=== PATIENT | male | born 1965 | race Caucasian/White ===

== ENCOUNTER 2018-11-10 04:14 | Inpatient (IN) | payer BC, OTHER ==
[2018-11-10] MEDS: NITROGLYCERIN 2% 1 GM OINT PKT TD (04:29)
[2018-11-10] MEDS ORDERED: NITROGLYCERIN (SL) 0.4 MG TAB SL ×2 (04:30→05:30)
[2018-11-10 04:35] LABS: ADD MAN DIFF? NO
[2018-11-10 04:37] LABS: BASOPHIL # 0.1 10^3/ul (0.0-0.1); BASOPHILS % 0.5 % (0.0-2.0); EOSINOPHILS # 0.5 10^3/ul (0.0-0.5); EOSINOPHILS % 4.2 % (0.0-7.0); HEMATOCRIT 45.5 % (42.0-52.0); HEMOGLOBIN 15.2 g/dl (14.0-18.0); LYMPHOCYTES # 2.2 10^3/ul (0.8-2.9); LYMPHOCYTES % 19.2 % (15.0-51.0); MEAN CORPUSCULAR HEMOGLOBIN 30.5 pg (29.0-33.0); MEAN CORPUSCULAR HGB CONC 33.4 g/dl (32.0-37.0); MEAN CORPUSCULAR VOLUME 91.2 fl (82.0-101.0); MEAN PLATELET VOLUME 8.8 fl (7.4-10.4); MONOCYTE # 1.1 10^3/ul (0.3-0.9); MONOCYTES % 9.3 % (0.0-11.0); NEUTROPHIL # 7.5 10^3/ul (1.6-7.5); NEUTROPHILS % 66.1 % (39.0-77.0); PLATELET COUNT 254 10^3/UL (140-415); RED BLOOD COUNT 4.99 10^6/ul (4.70-6.10); RED CELL DISTRIBUTION WIDTH 12.4 % (11.5-14.5)
[2018-11-10 04:37] LABS: WHITE BLOOD COUNT 11.3 10^3/ul (4.8-10.8)
[2018-11-10 04:59] LABS: ANION GAP 10 (5-13); BLOOD UREA NITROGEN 18 mg/dl (7-20); CARBON DIOXIDE 27 mmol/L (21-31); CHLORIDE 107 mmol/L (97-110); CREATININE 0.88 mg/dl (0.61-1.24); Estimated GFR > 60 mL/min (>60); GLUCOSE 118 mg/dl (70-220); POTASSIUM 4.4 mmol/L (3.5-5.1); SODIUM 144 mmol/L (135-144)
[2018-11-10] MEDS ORDERED: NACL 0.9% 3 ML SYG IV (05:30)
[2018-11-10] MEDS ORDERED: ONDANSETRON 4 MG INJ IV (05:30)
[2018-11-10] MEDS ORDERED: ACETAMINOPHEN 325 MG TAB PO (05:30)
[2018-11-10] MEDS ORDERED: morphine 2 MG INJ IV (05:30)
[2018-11-10] MEDS ORDERED: DOCUSATE SODIUM 100 MG CAP PO (05:30)
[2018-11-10] MEDS ORDERED: BISACODYL (EC) 5 MG TAB PO (05:30)
[2018-11-10] MEDS: LISINOPRIL 5 MG TAB PO ×2 (05:30→09:00)
[2018-11-10 05:45] LABS: INR 0.95; PARTIAL THROMBOPLASTIN TIME 26.5 Sec (23.0-35.0); PROTIME 12.8 Sec (11.9-14.9)
[2018-11-10 06:09] LABS: MAGNESIUM 1.8 mg/dl (1.7-2.5)
[2018-11-10 06:20] LABS: CK-MB 1.15 ng/ml (0.0-2.4)
[2018-11-10 06:30] LABS: CHOLESTEROL 125 mg/dl (100-200)
[2018-11-10 06:30] LABS: HDL CHOLESTEROL 25 mg/dl (28-71); LDL CHOLESTEROL,CALCULATED 77 mg/dl; TRIGLYCERIDES 117 mg/dl (0-149)
[2018-11-10] MEDS: HEPARIN 1000 UNITS/ML 10 ML INJ IV ×2 (06:33→15:05)
[2018-11-10] MEDS: HEPARIN 25000 UNITS/250 ML 250 ML IV ×2 (06:40→22:44)
[2018-11-10] MEDS: SOD CHLORIDE 0.9% 1,000 ML IV (09:00)
[2018-11-10] MEDS ORDERED: ASPIRIN (EC) 81 MG TAB PO (09:00)
[2018-11-10] MEDS: ATORVASTATIN 80 MG TAB PO ×2 (09:46→21:52)
[2018-11-10] MEDS: ASPIRIN 81 MG TAB PO (09:46)
[2018-11-10] MEDS: CLOPIDOGREL 75 MG TAB PO (09:46)
[2018-11-10 10:27] LABS: CREATINE KINASE 84 IU/L (23-200)
[2018-11-10 10:40] LABS: CK INDEX 1.1
[2018-11-10 10:43] LABS: TROPONIN-I 0.964 ng/ml (0.000-0.120)
[2018-11-10 14:36] LABS: CREATINE KINASE 84 IU/L (23-200)
[2018-11-10 14:40] LABS: PARTIAL THROMBOPLASTIN TIME 28.1 Sec (23.0-35.0)
[2018-11-10 14:49] LABS: CK INDEX 1.4; CK-MB 1.17 ng/ml (0.0-2.4)
[2018-11-10 14:51] LABS: TROPONIN-I 0.796 ng/ml (0.000-0.120)
[2018-11-10 21:29] LABS: PARTIAL THROMBOPLASTIN TIME 50.4 Sec (23.0-35.0)
[2018-11-11] MEDS: SOD CHLORIDE 0.9% 1,000 ML IV (01:55)
[2018-11-11] MEDS: HEPARIN 25000 UNITS/250 ML 250 ML IV ×2 (03:15→16:39)
[2018-11-11 06:33] LABS: ADD MAN DIFF? NO
[2018-11-11 06:44] LABS: BASOPHIL # 0.1 10^3/ul (0.0-0.1); BASOPHILS % 0.6 % (0.0-2.0); EOSINOPHILS # 0.5 10^3/ul (0.0-0.5); EOSINOPHILS % 4.5 % (0.0-7.0); HEMATOCRIT 47.5 % (42.0-52.0); HEMOGLOBIN 15.9 g/dl (14.0-18.0); LYMPHOCYTES % 19.2 % (15.0-51.0); MEAN CORPUSCULAR HEMOGLOBIN 30.6 pg (29.0-33.0); MEAN CORPUSCULAR HGB CONC 33.5 g/dl (32.0-37.0); MEAN CORPUSCULAR VOLUME 91.5 fl (82.0-101.0); MEAN PLATELET VOLUME 9.4 fl (7.4-10.4); MONOCYTE # 0.8 10^3/ul (0.3-0.9); MONOCYTES % 7.9 % (0.0-11.0); NEUTROPHIL # 7.1 10^3/ul (1.6-7.5); NEUTROPHILS % 66.9 % (39.0-77.0); PLATELET COUNT 226 10^3/UL (140-415); RED BLOOD COUNT 5.19 10^6/ul (4.70-6.10); RED CELL DISTRIBUTION WIDTH 12.1 % (11.5-14.5)
[2018-11-11 06:44] LABS: WHITE BLOOD COUNT 10.6 10^3/ul (4.8-10.8)
[2018-11-11 06:57] LABS: PARTIAL THROMBOPLASTIN TIME 64.9 Sec (23.0-35.0)
[2018-11-11 07:11] LABS: CREATINE KINASE 76 IU/L (23-200)
[2018-11-11 07:16] LABS: ALANINE AMINOTRANSFERASE 70 IU/L (13-69); ALBUMIN 4.1 g/dl (3.3-4.9); ALBUMIN/GLOBULIN RATIO 1.64; ALKALINE PHOSPHATASE 62 IU/L (42-121); ANION GAP 10 (5-13); ASPARTATE AMINO TRANSFERASE 45 IU/L (15-46); BILIRUBIN,INDIRECT 0.7 mg/dl (0-1.1); BILIRUBIN,TOTAL 0.7 mg/dl (0.2-1.3); BLOOD UREA NITROGEN 17 mg/dl (7-20); CALCIUM 9.3 mg/dl (8.4-10.2); CARBON DIOXIDE 24 mmol/L (21-31); CHLORIDE 107 mmol/L (97-110); CREATININE 0.81 mg/dl (0.61-1.24); Estimated GFR > 60 mL/min (>60); GLUCOSE 91 mg/dl (70-220); POTASSIUM 4.9 mmol/L (3.5-5.1); SODIUM 141 mmol/L (135-144); TOTAL PROTEIN 6.6 g/dl (6.1-8.1)
[2018-11-11 07:19] LABS: CK INDEX 0.7; CK-MB 0.54 ng/ml (0.0-2.4)
[2018-11-11 07:22] LABS: TROPONIN-I 0.914 ng/ml (0.000-0.120)
[2018-11-11] MEDS: LISINOPRIL 5 MG TAB PO (08:20)
[2018-11-11] MEDS: ASPIRIN 81 MG TAB PO (08:21)
[2018-11-11] MEDS: CLOPIDOGREL 75 MG TAB PO (08:21)
[2018-11-11 13:55] LABS: PARTIAL THROMBOPLASTIN TIME 65.3 Sec (23.0-35.0)
[2018-11-11 20:28] LABS: PARTIAL THROMBOPLASTIN TIME 65.5 Sec (23.0-35.0)
[2018-11-11] MEDS: ATORVASTATIN 80 MG TAB PO (20:54)
[2018-11-12] MEDS: HEPARIN 25000 UNITS/250 ML 250 ML IV (06:33)
[2018-11-12 07:12] LABS: PARTIAL THROMBOPLASTIN TIME 59.6 Sec (23.0-35.0)
[2018-11-12] MEDS: LISINOPRIL 5 MG TAB PO (08:13)
[2018-11-12] MEDS: ASPIRIN 81 MG TAB PO (08:13)
[2018-11-12] MEDS: CLOPIDOGREL 75 MG TAB PO (08:13)
[2018-11-12] MEDS ORDERED: BISACODYL (EC) 5 MG TAB PO (17:00)
[2018-11-12] MEDS: ATORVASTATIN 80 MG TAB PO (21:24)
[2018-11-13 06:48] LABS: ADD MAN DIFF? NO
[2018-11-13 06:55] LABS: WHITE BLOOD COUNT 11.5 10^3/ul (4.8-10.8)
[2018-11-13 06:55] LABS: BASOPHIL # 0.1 10^3/ul (0.0-0.1); BASOPHILS % 0.4 % (0.0-2.0); EOSINOPHILS # 0.4 10^3/ul (0.0-0.5); EOSINOPHILS % 3.5 % (0.0-7.0); HEMATOCRIT 47.8 % (42.0-52.0); HEMOGLOBIN 16.7 g/dl (14.0-18.0); LYMPHOCYTES # 1.8 10^3/ul (0.8-2.9); LYMPHOCYTES % 15.4 % (15.0-51.0); MEAN CORPUSCULAR HEMOGLOBIN 31.5 pg (29.0-33.0); MEAN CORPUSCULAR HGB CONC 34.9 g/dl (32.0-37.0); MEAN CORPUSCULAR VOLUME 90.2 fl (82.0-101.0); MEAN PLATELET VOLUME 9.3 fl (7.4-10.4); MONOCYTES % 8.7 % (0.0-11.0); NEUTROPHIL # 8.2 10^3/ul (1.6-7.5); NEUTROPHILS % 71.1 % (39.0-77.0); PLATELET COUNT 251 10^3/UL (140-415); RED CELL DISTRIBUTION WIDTH 12.3 % (11.5-14.5)
[2018-11-13 07:10] LABS: PARTIAL THROMBOPLASTIN TIME 27.8 Sec (23.0-35.0)
[2018-11-13 07:18] LABS: INR 0.91; PROTIME 12.4 Sec (11.9-14.9)
[2018-11-13 07:26] LABS: ANION GAP 9 (5-13); BLOOD UREA NITROGEN 17 mg/dl (7-20); CALCIUM 9.6 mg/dl (8.4-10.2); CARBON DIOXIDE 26 mmol/L (21-31); CHLORIDE 106 mmol/L (97-110); CREATININE 0.83 mg/dl (0.61-1.24); Estimated GFR > 60 mL/min (>60); GLUCOSE 97 mg/dl (70-220); POTASSIUM 4.2 mmol/L (3.5-5.1); SODIUM 141 mmol/L (135-144)
[2018-11-13 07:31] LABS: TROPONIN-I 0.142 ng/ml (0.000-0.120)
[2018-11-13] MEDS: ASPIRIN 81 MG TAB PO (08:43)
[2018-11-13] MEDS: CLOPIDOGREL 75 MG TAB PO (08:43)
[2018-11-13] MEDS: LISINOPRIL 5 MG TAB PO (08:43)
[2018-11-13] MEDS ORDERED: LIDOCAINE 1% (MDV) 20 ML INJ (12:50)
[2018-11-13] MEDS ORDERED: IODIXANOL LOCM 100 ML BTL (12:50)
[2018-11-13] MEDS ORDERED: VERAPAMIL 5 MG INJ (12:50)
[2018-11-13] MEDS ORDERED: FENTAnyl 50 MCG/ML VIAL (12:50)
[2018-11-13] MEDS ORDERED: NITROGLYCERIN (IC) 100 MCG/ML INJ (12:50)
[2018-11-13] MEDS ORDERED: MIDAZOLAM 1 MG/ML 2 ML INJ (12:50)
[2018-11-13] MEDS ORDERED: HEPARIN 1000 UNITS/ML 10 ML INJ (12:50)
[2018-11-13] MEDS ORDERED: SOD CHLORIDE 0.9% 500 ML (12:51)
[2018-11-13] MEDS ORDERED: CLOPIDOGREL 300 MG TAB (14:18)
[2018-11-13] MEDS ORDERED: ASPIRIN 81 MG TAB (14:18)
[2018-11-13] MEDS ORDERED: OXYCODONE/ACETAMINOPHEN (5/325) TAB PO (14:30)
[2018-11-13] MEDS ORDERED: ONDANSETRON 4 MG INJ IV (14:30)
[2018-11-13] MEDS ORDERED: ACETAMINOPHEN 325 MG TAB PO (14:30)
[2018-11-13] MEDS ORDERED: AL HYDROX/MG HYDROX/SIMETH 30 ML CUP PO (14:30)
[2018-11-13] MEDS: SOD CHLORIDE 0.45% 1,000 ML IV (17:59)
[2018-11-13] MEDS: ATORVASTATIN 80 MG TAB PO (20:34)
[2018-11-14] MEDS: ASPIRIN 81 MG TAB PO (08:35)
[2018-11-14] MEDS: CLOPIDOGREL 75 MG TAB PO (08:35)
== END 2018-11-14 14:00 | disposition home or self-care (01) | DRG 247 ==
LOC: E/R 04:14 → TEL 05:31
PROC: 027034Z Dilation of Coronary Artery, One Artery with Drug-eluting Intraluminal Device, Percutaneous Approach (ICD-10-PCS; principal; 2018-11-13 13:05)
PROC: 4A023N7 Measurement of Cardiac Sampling and Pressure, Left Heart, Percutaneous Approach (ICD-10-PCS; 2018-11-13 13:05)
PROC: B211YZZ Fluoroscopy of Multiple Coronary Arteries using Other Contrast (ICD-10-PCS; 2018-11-13 13:05)
DX: I22.2 Subsequent non-ST elevation (NSTEMI) myocardial infarction (principal); I42.9 Cardiomyopathy, unspecified; Z68.41 Body mass index [BMI] 40.0-44.9, adult; K64.9 Unspecified hemorrhoids; I25.10 Atherosclerotic heart disease of native coronary artery without angina pectoris; I10 Essential (primary) hypertension; E78.5 Hyperlipidemia, unspecified; E66.9 Obesity, unspecified; Z79.82 Long term (current) use of aspirin; Z87.891 Personal history of nicotine dependence; Z95.5 Presence of coronary angioplasty implant and graft
CPT/HCPCS: 36415; 71045; 80048; 80053; 80061; 82550; 82553; 83036; 83735; 84443; 84484; 85025; 85610; 85730; 92928; 93005; 93458; 99285-25